=== PATIENT | male | born 1955 | race Caucasian/White ===

== ENCOUNTER 2019-11-23 12:07 | Emergency (ER) | payer MEDICARE, MEDICAID ==
[~2019-11-23] VITALS: Ht 182.9 cm; Wt 141.0 kg
[2019-11-23 12:21] VITALS: BP 124/91
== END 2019-11-23 14:30 | disposition home or self-care (01) ==
LOC: ER 12:34
DX: M25.571 Pain in right ankle and joints of right foot (principal); L03.115 Cellulitis of right lower limb; L02.415 Cutaneous abscess of right lower limb; I11.9 Hypertensive heart disease without heart failure; I25.2 Old myocardial infarction; Z88.2 Allergy status to sulfonamides; Z95.1 Presence of aortocoronary bypass graft; Z86.73 Personal history of transient ischemic attack (TIA), and cerebral infarction without residual deficits
CPT/HCPCS: 73610; 93971; 99284